=== PATIENT | female | born 2000 | race Two or more races ===

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

== ENCOUNTER 2025-01-01 05:21 | Emergency (ER) | payer MEDICAID ==
[~2025-01-01] VITALS: Ht 162.6 cm; Wt 53.5 kg
[2025-01-01] MEDS: diphenhdrAMINE HCL 25 MG CAP PO ONE (05:48)
[2025-01-01] MEDS: FAMOTIDINE 20 MG TAB PO ONE (05:48)
[2025-01-01] MEDS: predniSONE 20 MG TAB PO ONE (05:48)
[2025-01-01 07:16] VITALS: BP 120/79; PULSE 91; RESP 18; TEMP 97.8; O2SAT 100
[2025-01-01] MEDS ORDERED: METH4PAK PO (07:24)
[2025-01-01] MEDS ORDERED: DIPH25CA51 PO (07:24)
--- NOTE | 2025-01-01 07:25 | ED.PDOC ---
HPI Allergic reaction HPI Comments This is a pleasant 24-year-old female that presents for an allergic reaction. Unknown cause. Symptoms started last night. The patient reports she developed hive appearing rash to the chest wall. She took Benadryl at 5:00 a.m. and applied calamine lotion with little relief. Denies any angioedema. Denies chest pain shortness of breath. Patient denies any fever, cough, difficulty swallowing, or shortness of breath Denies fever chills night sweats nausea vomiting diarrhea Denies persistent loss of appetite nor unintentional weight loss over the past 3 months Denies history of STI Denies cough and cold-like symptoms Denies recent travel Denies sick contact with similar rash Denies new topical creams/lotions/shampoos/detergents Denies noticing any insects Denies bruising bleeding anywhere Denies chronic skin issues or family history of skin issues Chief Complaint: Allergic Reaction Time Seen by MD: 06:17 Reviewed Notes: Nurses Notes, Medications, Allergies Allergies: Coded Allergies: NO KNOWN ALLERGIES (Unverified , 05/23/20) Home Meds Active Scripts Diphenhydramine Hcl (BENADRYL CAPSULE) 25 Mg Cp, 25 MG PO Q8HP PRN for 5 Days, #15 CAP 0 Refills Prov:LAN QUINTERO DANCE COACH 01/01/25 Methylprednisolone (Medrol Dosepak) 4 Mg Kevon, 4 MG PO UD for 7 Days, #21 TAB 0 Refills UAD Prov:LAN QUINTERO DANCE COACH 01/01/25 Information Source: Patient Mode of Arrival: Ambulatory Past Medical History PAST MEDICAL HISTORY: Denies Surgical History: Denies all surgeries [employer] History: Ovarian Cysts Family History Family History: Reviewed,noncontributory to illness Social History Smoker: Non-Smoker Alcohol: Denies ETOH Use Drugs: Marijuana Lives In: Home All Other Systems: Reviewed and Negative (Per HPI) Physical Exam General Appearance: No Apparent Distress, Normal HEENT: Normal ENT Inspection, Pharynx Normal, TMs Normal Neck: Full Range of Motion, Non-Tender, Normal, Normal Inspection Respiratory: Chest Non-Tender, Lungs Clear, No Accessory Muscle Use, No Respiratory Distress, Normal Breath Sounds Cardiovascular: No Edema, No JVD, No Murmur, No Gallop, Normal Peripheral Pulses, Regular Rate/Rhythm Breast Exam: Deferred Gastrointestinal: No Organomegaly, Non Tender, No Pulsatile Mass, Normal Bowel Sounds, Soft Genitalia: Deferred Pelvic: Deferred Rectal: Deferred Extremities: No calf tenderness, Normal capillary refill, Normal inspection, Normal range of motion, Non-tender, No pedal edema Musculoskeletal : Apperance: Normal Neurologic: Alert, delivery architect II-XII nml as Tested, No Motor Deficits, Normal Affect, Normal Mood, No Sensory Deficits Cerebellar Function: Normal Reflexes: Normal Skin: Dry, Normal Color, Warm Lymphatic: No Adenopathy Was a procedure done? Was a procedure done?: No Differential diagnosis (all) Differential Diagnosis: Urticaria X-Ray, Labs, Meds, VS Vital Signs Date Time Temp Pulse Resp B/P (MAP) Pulse Ox O2 Delivery O2 Flow Rate FiO2 01/01/25 07:16 91 18 100 Room Air 01/01/25 07:16 97.8 91 18 120/79 (93) 100 97.8 01/01/25 05:30 18 100 Room Air* 0 21 01/01/25 05:30 97.8 91 18 120/79 (93) 100 97.8 Current Medications Medications (Trade) Dose Ordered Sig/Adin Route Start Time Stop Time Status Last Admin Famotidine (Pepcid Tablet) 20 mg ONCE ONCE PO 01/01/25 05:45 01/01/25 05:46 DC 01/01/25 05:48 Prednisone 40 mg ONCE ONCE PO 01/01/25 05:45 01/01/25 05:46 DC 01/01/25 05:48 Diphenhydramine HCl (Benadryl Capsule) 25 mg ONCE ONCE PO 01/01/25 05:45 01/01/25 05:46 DC 01/01/25 05:48 X-Ray, Labs, Meds, VS Comment Pt presents ED for idiopathetic allergic reaction that resolved at the time of check in Pt was treated with medication at triage and reported significant improvement on revaluation Patient was monitored in the ED for an extended amount of time. Medrol Dosepak prescribed for additional treatment. Patient was instructed to take Benadryl and use calamine lotion as needed for itchiness Follow-up with PCP in 1 to 2 days. Patient needs cabin man referral for further testing Return to ED if symptoms persist, or sooner if symptoms worsen Time of 1ST Reevaluation: 07:20 Reevaluation 1ST: Improved Patient Education/Counseling: Diagnosis, Treatment Family Education/Counseling: Diagnosis, Treatment Departure 1 Departure Time of Disposition: 07:23 Impression: Primary Impression: Allergic reaction Qualified Codes: T78.40XA - Allergy, unspecified, initial encounter Disposition: HOME / SELF CARE / HOMELESS Condition: Stable e-Prescriptions Diphenhydramine Hcl (BENADRYL CAPSULE) 25 Mg Cp 25 MG PO Q8HP PRN for 5 Days, #15 CAP 0 Refills Prov: LAN QUINTERO NP 01/01/25 Methylprednisolone (Medrol Dosepak) 4 Mg Kevon 4 MG PO UD for 7 Days, #21 TAB 0 Refills UAD Prov: LAN QUINTERO NP 01/01/25 Critical Care Note Critical Care Time?: No Stability Stability form required: No Heart Score Heart Score: Heart Score Response (Comments) Value History N/A 0 EKG N/A 0 Age N/A 0 Risk Factors N/A 0 Troponin N/A 0 Total 0 LAN QUINTERO NP Jan 01, 2025 07:25
== END 2025-01-01 07:30 | disposition home or self-care (01) ==
LOC: ER 05:21
DX: T78.40XA Allergy, unspecified, initial encounter (principal); F12.90 Cannabis use, unspecified, uncomplicated; Z79.899 Other long term (current) drug therapy; X58.XXXA Exposure to other specified factors, initial encounter
CPT/HCPCS: 99284; J7512